=== PATIENT | female | born 1950 | race Caucasian/White ===

== ENCOUNTER → 2021-03-04 07:25 | Outpatient (CLI) | payer SELFPAY, OTHER ==
--- NOTE | 2021-03-04 07:36 | CT_ITS ---
STUDY: CT LEFT LOWER EXTREMITY WITHOUT CONTRAST REASON FOR EXAM: Left knee osteoarthritis, left knee deformity, surgical planning. TECHNIQUE: Transaxial CT imaging of the lower extremity was performed. Coronal and sagittal images were reformatted. Individualized dose optimization techniques were used for this CT. COMPARISON: None. FINDINGS: Knee: There are marginal osteophytes, subchondral sclerosis and moderate joint space narrowing of the medial femorotibial compartment (coronal reconstruction 32). There are small marginal osteophytes and moderate joint space narrowing of the mesial aspect of the lateral femorotibial compartment (coronal reconstruction 34). There are marginal osteophytes, severe joint space narrowing of the lateral aspect of the patellofemoral articulation (axial image 250) and lateral tilt of the patella. Normal proximal tibiofibular articulation. There is a moderate-sized joint effusion. The quadriceps tendon is grossly normal. The patellar tendon is grossly normal. Normal Hoffa''s fat pad. The soft tissues are unremarkable. Hip: There is [id number] joint space narrowing of the left hip (coronal reconstruction 63). There are prominent superficial venous varicosities especially in the left inguinal region (coronal reconstructions 37-40). Ankle: Normal tibiotalar, posterior subtalar, talonavicular and calcaneocuboid articulations. There are small posterior and plantar calcaneal enthesophytes. CT/Extremity Lower without Contra IMPRESSION: Left knee osteoarthritis. Electronically Signed: Kelton Carrera MD at 14:59 EST Tel , Service support ,
== END ==
PROVIDERS: Referring Provider Specialist; Visit Provider Specialist
DX: M21.162 Varus deformity, not elsewhere classified, left knee (principal); M17.12 Unilateral primary osteoarthritis, left knee
CPT/HCPCS: 73700